=== PATIENT | female | born 1940 | race Hispanic/Latino ===

== ENCOUNTER 2018-02-12 10:25 | Outpatient (CLI) | payer MEDICARE ==
--- NOTE | 2018-02-12 13:41 | RAD ---
LUMBAR SPINE 2 VIEW: INDICATION: History of fall with back pain. COMPARISON: Lumbar spine radiograph dated 02/18/2006. FINDINGS: There is slight dextroscoliosis of the lumbar spine which is stable. There has been progression in t he degenerative disk disease of the lumbar spine most prominent at L4-5 and L5-S1. There is anterior translation of L4 on L5 which is stable. There are scattered vascular calcifications. No acute fra cture or subluxation is evident. IMPRESSION: 1. Progressive degenerative disk disease of the lumbar spine. 2. Stable grade I anterolisthesis of L4 on L5 when compared to a prior in 2005. POS: MORENA
== END 2018-02-12 10:26 | disposition home or self-care (01) ==
LOC: BICRAD 10:25
PROVIDERS: ATTEND Internal Medicine
DX: M54.9 Dorsalgia, unspecified (principal); M51.36 Other intervertebral disc degeneration, lumbar region; M43.16 Spondylolisthesis, lumbar region
CPT/HCPCS: 72100

== ENCOUNTER 2018-09-12 09:03 | Outpatient (CLI) | payer MEDICARE ==
--- NOTE | 2018-09-12 10:57 | MRI ---
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 FINDINGS: There is no obstructive hydrocephalus. There is no midline shift or any other evidence of mass effect . There is no extra-axial fluid collection. There are minimal chronic ischemic white matter changes due to microvascular atherosclerosis. There is otherwise no major intra-axial signal abnormality, abn ormal enhancement, mass, recent hemorrhage, or restricted diffusion. There is a T1 hypointense and T2 hyperintense implanted device at the superior lateral aspect of the right orbit. IMPRESSION: 1) the brain is essentially normal. 2) right intraorbital foreign body, presumably glaucoma drainage implant (GDI), but recommend correla tion with orbital surgical history
== END 2018-09-12 09:04 | disposition home or self-care (01) ==
LOC: SCSMRI 09:03
PROVIDERS: ATTEND Psychiatry & Neurology Neurology
DX: G40.209 Localization-related (focal) (partial) symptomatic epilepsy and epileptic syndromes with complex partial seizures, not intractable, without status epilepticus (principal); S00.251A Superficial foreign body of right eyelid and periocular area, initial encounter
CPT/HCPCS: 70553; 82565

== ENCOUNTER 2020-05-27 17:30 | Inpatient (IN) | payer MEDICARE ==
[2020-05-27 18:30] LABS: #Lymphocytes 0.9 thou/uL (1.20-3.40); #Monocytes 0.5 thou/uL (0.11-0.59); #Neutrophils 12.9 thou/uL (1.40-6.50); %Basophils 0.1 % (0.0-1.0); %Eosinophils 0.2 % (0.0-10.0); %Lymphocytes 6.1 % (21.0-51.0); %Monocytes 3.7 % (0.0-10.0); %Neutrophils 89.9 % (42.0-75.0); Hemoglobin 11.1 g/dL (12.0-16.0); Mean Corpuscular HGB CONC 31.9 g/dL (32.0-36.0); Mean Platelet Volume 6.9 fL (7.4-10.4); Platelet Count 298 thou/uL (130-400); RBC Distribution Width 16.1 % (11.5-14.5); White Blood Cell (WBC) Count 14.3 thou/uL (4.8-10.8)
--- NOTE | 2020-05-27 18:42 | RAD ---
EXAM: CHEST ONE VIEW HISTORY: Fall from standing position. Syncopal episode. Altered mental status and lethargy. COMPARISON: 12/01/2013 FINDINGS: Cardiac silhouette is magnified by projection but stable in size. Pulmonary vasculature is within nor mal limits. Linear area of scarring is again seen in the lingula. The lungs are otherwise clear. Again noted is evidence of prior granulomatous disease. No other interval change. IMPRESSION: No acute cardiopulmonary process.
[2020-05-27 18:47] LABS: ALT (SGPT) 10 U/L (8-55); AST (SGOT) 18 U/L (5-34); Alkaline Phosphatase 99 U/L (40-110); Anion Gap 15 mmol/L (10-20); BUN (Urea Nitrogen) 29 mg/dL (9.8-20.1); Bilirubin, Total 0.3 mg/dL (0.2-1.2); Calc. Creatinine Clearance 0 mL/min (70-130); Calcium 9.3 mg/dL (7.8-10.44); Carbon Dioxide 25 mmol/L (23-31); Chloride 102 mmol/L (98-107); Globulin 2.9 g/dL (2.4-3.5); Glucose 117 mg/dL (83-110); Potassium 4.8 mmol/L (3.5-5.1); Protein, Total 6.9 g/dL (5.8-8.1); Sodium 137 mmol/L (136-145)
--- NOTE | 2020-05-27 18:49 | RAD ---
RIGHT TIBIA AND FIBULA TWO VIEWS: 05/27/20 HISTORY: Fall. There is a comminuted more spiral type orientation of the fracture of the distal tibial shaft. There is a displaced component of the fracture more proximally but there does appear to be a fracture line that actually extends into the distal shaft. There is associated distal fibular shaft fracture. IMPRESSION: Distal tibia and fibular fractures. POS: NATALIE
[2020-05-27] MEDS ORDERED: Ondansetron PF 4 MG/2 ML Vial ONE (19:11)
[2020-05-27] MEDS ORDERED: Morphine 4 MG/ML VIAL ONE ×2 (19:11→19:57)
[2020-05-27] MEDS ORDERED: Cyclobenzaprine 10 MG TAB PO PRN (22:16)
[2020-05-27] MEDS ORDERED: Ondansetron PF 4 MG/2 ML Vial IVP PRN (22:16)
[2020-05-27] MEDS ORDERED: Dextrose 5% in Water 1,000 ML IV PRN (22:16)
[2020-05-27] MEDS ORDERED: traMADol HCl 50 MG TAB PO PRN (22:16)
[2020-05-27] MEDS ORDERED: Dextrose 50% Abboject 50 ML SYRINGE SLOW IVP PRN (22:16)
[2020-05-27] MEDS ORDERED: Ondansetron ODT 4 MG TAB PO PRN (22:16)
[2020-05-27] MEDS ORDERED: Morphine 2 MG/ML VIAL SLOW IVP PRN (22:16)
[2020-05-27] MEDS: Acetaminophen 500 MG TAB PO SCH (23:45)
[2020-05-27] MEDS ORDERED: Sodium Chloride 0.9% 1,000 ML IV SCH (23:55)
[2020-05-28 01:49] VITALS: BMI 32.6
--- NOTE | 2020-05-28 02:02 | HP ---
REQUESTING PHYSICIAN: Dr. Izquierdo. CONSULTATIONS: Orthopedics, Dr. Berkowitz. HISTORY OF PRESENT ILLNESS: The patient is a 79-year-old woman, who is brought to the emergency department after having a hypoglycemic event and fall. The patient reports that she did not monitor her blood sugar closely this morning when she used her insulin, and she reports that she felt very weak and fell. Fortunately, her daughter and sister were nearby and were able to give her some honey, and after she became more alert, she noted that her right lower extremity had some significant pain and discomfort. She was brought to the emergency room, where she underwent evaluation and examination and was noted to have right tibia and fibular fracture, at which time we were asked to evaluate the patient for admission and obtain orthopedic consultation. The patient denies hitting her head. She reports that she never fully lost consciousness. She just was very weak. ALLERGIES: PREDNISONE. CURRENT MEDICATIONS: 1. Simvastatin. 2. NovoLog and Novolin. 3. Baby aspirin. 4. Tylenol. 5. Iron supplement. 6. Lisinopril/hydrochlorothiazide. PAST MEDICAL HISTORY: Type 2 diabetes, hypertension, hyperlipidemia, blindness in one eye. SURGICAL HISTORY: The patient reports bilateral elbow fractures requiring surgery. SOCIAL HISTORY: The patient denies drug, tobacco, or alcohol use. She lives at home with family. REVIEW OF SYSTEMS: A 10-point review of systems is negative except otherwise stated. PHYSICAL EXAMINATION: VITAL SIGNS: Temperature is 97.9, heart rate 73, blood pressure 126/74, respirations 16, and oxygen saturation 100% on room air. GENERAL: The patient is resting comfortably in bed. She is awake, alert, conversant, appropriate. [place] Coma Scale is 15. HEENT: Head is normocephalic. Nose is atraumatic without discharge. Oropharynx is clear. NECK: Nontender. Trachea is midline. No JVD. CHEST: Clear to auscultation with good inspiratory and expiratory effort. HEART: Regular rate and rhythm. ABDOMEN: Soft, flat, nontender with active bowel sounds. EXTREMITIES: Neurovascularly intact x4. Right lower extremity is in a padded splint. LABORATORY FINDINGS: White blood cell count 14.3, hemoglobin 11.1, hematocrit 34.8, platelets 298. Sodium 137, potassium 4.8, chloride 102, CO2 of 25, BUN 29, creatinine 1.00, glucose 117. LFTs are unremarkable. Troponin is 0.023. COVID is pending. RADIOGRAPHIC FINDINGS: AP chest x-ray shows no acute cardiopulmonary process. Views of the right tibia and fibula show a distal tibia and fibular fractures. ASSESSMENT/PLAN: 1. Status post ground level fall due to hypoglycemia. 2. Right tibia and fibular fracture, closed. 3. History of diabetes, hypertension, hyperlipidemia. PLAN: Plan will be to admit the patient to the surgical floor. She will be n.p.o. after midnight. We will do sliding scale insulin coverage, hydration, pain control, pulmonary toilet, gastritis, mechanical VTE prophylaxis. The patient will be n.p.o. after midnight. Postoperatively, we will begin physical and occupational therapy and discuss placement at that time. The patient believes that she will be able to go home. The evaluation, examination, laboratory, and radiographic findings discussed with attending after this dictation. Job ID: [id number]
[2020-05-28 05:45] LABS: #Eosinphils 0.1 thou/uL (0.0-0.7); #Lymphocytes 2.5 thou/uL (1.20-3.40); #Monocytes 0.8 thou/uL (0.11-0.59); #Neutrophils 5.7 thou/uL (1.40-6.50); %Basophils 0.4 % (0.0-1.0); %Eosinophils 1.4 % (0.0-10.0); %Lymphocytes 27.3 % (21.0-51.0); %Monocytes 8.4 % (0.0-10.0); %Neutrophils 62.5 % (42.0-75.0); Hemoglobin 9.6 g/dL (12.0-16.0); Mean Corpuscular HGB CONC 32.4 g/dL (32.0-36.0); Mean Corpuscular Hemoglobin 30.6 pg (27.0-31.0); Mean Corpuscular Volume 94.3 fL (78.0-98.0); Mean Platelet Volume 7.1 fL (7.4-10.4); Platelet Count 273 thou/uL (130-400); RBC Distribution Width 16.3 % (11.5-14.5); Red Blood Cell (RBC) Count 3.14 mill/uL (4.20-5.40); White Blood Cell (WBC) Count 9.1 thou/uL (4.8-10.8)
[2020-05-28] MEDS ORDERED: Ibuprofen 600 MG TAB PO SCH (06:00)
[2020-05-28] MEDS: Acetaminophen 500 MG TAB PO SCH ×4 (06:22→23:22)
[2020-05-28 06:28] LABS: Phosphorus 5.1 mg/dL (2.3-4.7)
[2020-05-28 06:29] LABS: Anion Gap 12 mmol/L (10-20); BUN (Urea Nitrogen) 29 mg/dL (9.8-20.1); Calc. Creatinine Clearance 50 mL/min (70-130); Calcium 8.6 mg/dL (7.8-10.44); Carbon Dioxide 26 mmol/L (23-31); Chloride 104 mmol/L (98-107); Glucose 105 mg/dL (83-110); Potassium 4.7 mmol/L (3.5-5.1); Sodium 137 mmol/L (136-145)
[2020-05-28] MEDS ORDERED: CEFAZOLIN 2 GM in Premix Bag 1 BAG IVPB SCH (07:30)
--- NOTE | 2020-05-28 08:41 | CON ---
DATE OF CONSULTATION: This is Rogelio Arevalo PA-C dictating a report for Sj Berkowitz MD. We are asked by Trauma to see patient. HISTORY OF PRESENT ILLNESS: The patient states that she was at home. Her daughter had come to see her that morning. Around noon, she got up from the couch, did not feel so good, laid her head down. Her sister had called and was concerned she did not sound right and she ended up falling, fracturing her right tib-fib. She was trying to check her blood sugar at that time also, but was unable to due to weakness. She ended up eating a little bit and became more alert and noticed that her right lower extremity was quite painful and deformed and she called and came to the emergency room. The patient was put in a posterior splint. It looks like her leg was not straightened but asked if she feels okay and her leg is comfortable in the splint, therefore, I will not change it since she will have surgery around noon. She denies any other injuries. She has good sensations to that right lower extremity and wiggling her toes well. ALLERGIES: PREDNISONE. MEDICATIONS: 1. Simvastatin. 2. NovoLog. 3. Insulin. 4. Baby aspirin. 5. Tylenol. 6. Iron supplements. 7. Lisinopril/hydrochlorothiazide. PAST MEDICAL HISTORY: Diabetes, hypertension, hyperlipidemia. She has blindness in her right eye. SURGERIES: Bilateral elbows, some hand, right eye. SOCIAL HISTORY: Resides at home alone. Her family lives across the street and she has quite a bit of family in her normal vicinity. She denies any vices whatsoever. FAMILY FOR THIS EVENT: Noncontributory. REVIEW OF SYSTEMS: Very sweet, pleasant lady. Other than the blindness in her right eye denies any chest pain, shortness of breath. No bowel or bladder issues. Right lower extremity is comfortable right now, but misaligned, but her pulses and sensations are good to lower extremities. As discussed rest of review of systems is negative. PHYSICAL EXAMINATION: GENERAL: Very sweet, pleasant female, resting in bed in room 3302 in no acute distress. Her speech is clear. Affect pleasant. Answers questions appropriately. She is oriented. Her daughter in-law works in the hospital and just finished been visiting with her. HEENT: Scalp atraumatic. Face symmetric. Tongue midline. NECK: Supple. Trachea midline. CHEST: Respirations 16 in no acute distress. ABDOMEN: Soft, nontender pelvis. EXTREMITIES: Upper extremities equal size, shape, symmetry normal bulk and tone. Movements, sensations, pulses are equal. No pain with rocking lower extremities. Equal size, shape, symmetry. Normal bulk and tone with the exception of the right lower extremity, which is splinted. Her foot is outward rotated but again as above, is very comfortable. Therefore, I will not re-splint her since surgery is at noon. She has good movement of bilateral lower extremity digits. Sensations are good as are pulses. I am unable to palpate the dorsalis pedis due to the splinting but the posterior tibialis on the right is equal to the left. VITAL SIGNS: Currently are stable. LABORATORY DATA: H and H 9.6 and 29.7. UA not acquired. IMAGING DATA: X-rays show a right midshaft tibial fracture and a distal fibular fracture. ASSESSMENT: Tib-fib fracture. PLAN: Admitted to Trauma. They will manage her medical issues. As for Orthopedics, we plan to do a tibial nail with a possible medial malleolus repair. I explained the procedure to the patient, went over the risks and benefits, her questions and concerns have been answered and she is amenable to go forth with surgery. Our plan for surgery is at noon. Antibiotics have been ordered as also she has been posted. If family comes or they have any other questions or concerns we can address some as they arise. Job ID: [id number]
[2020-05-28] MEDS: Senokot S 8.6-50 MG TAB PO SCH ×2 (10:01→20:23)
[2020-05-28] MEDS: Polyethylene Glycol 3350 17 GM Packet PO SCH (10:01)
[2020-05-28] MEDS: Famotidine 20 MG TAB PO SCH ×2 (10:01→20:23)
[2020-05-28] MEDS ORDERED: PROPOFOL 200 MG/20 ML VIAL ONE (10:08)
[2020-05-28] MEDS ORDERED: PHENYLEPHRINE-NS 100 MCG/ML 10 ML SYRINGE ONE (10:08)
[2020-05-28] MEDS ORDERED: Lidocaine 1% PF 5 ML VIAL ONE (10:08)
[2020-05-28 11:42] LABS: SARS-CoV-2 PCR by NAA Not Detected (NotDetected)
[2020-05-28] MEDS ORDERED: Fentanyl 100 MCG/2 ML VIAL ONE (14:36)
[2020-05-28] MEDS ORDERED: Promethazine HCl 25 MG/ML VIAL IM PRN (15:03)
[2020-05-28] MEDS ORDERED: Promethazine HCl 25 MG/ML VIAL SLOW IVP PRN (15:03)
[2020-05-28] MEDS ORDERED: Ondansetron HCl/PF 4 MG/2 ML Vial IVP PRN (15:03)
--- NOTE | 2020-05-28 15:06 | PRG ---
DATE OF SERVICE: 05/28/2020 SUBJECTIVE: This is a 79-year-old female, who presented to the ER after having a hypoglycemic event and fall. The patient was found to have a fractured tibia and fibula. Ortho was consulted and is recommending operative management. This morning, the patient overall is feeling well, although does report some right-sided leg pain that is well controlled with current pain management. Overall, the patient has had an uneventful night with stable blood sugars. OBJECTIVE: VITAL SIGNS: Temperature 98.4, pulse 81, respiratory rate 12, O2 saturation 94% on room air, blood pressure 164/70. GENERAL: A 79-year-old female, lying comfortably in bed, who appears stated age. HEENT: Atraumatic and normocephalic. RESPIRATORY: Equal chest rise and fall. No acute respiratory distress. MUSCULOSKELETAL: No obvious deformities, moving upper extremities appropriately, right lower extremity limited by pain. NEUROLOGICAL: A and O x3. No focal deficits. PSYCHIATRIC: Mood and affect are appropriate and congruent. LABORATORY DATA: CBC is significant for hemoglobin 9.6, hematocrit 29.7. BMP is significant for creatinine of 1.13, glucose 105, phosphorus 5.1. DIAGNOSTIC IMAGING: No new images to report. ASSESSMENT: 1. Status post ground level fall due to hypoglycemia. 2. Right tibia and fibular fracture, closed. 3. History of diabetes, hypertension, and hyperlipidemia. PLAN: Orthopedic Surgery has been consulted and is planning on taking the patient to the OR for operative management of fracture. We will follow up with their recommendations as well as the patient postop this afternoon. Continue to monitor blood sugars and adjust insulin as needed. This patient was seen by Dr. Aponte and plan was discussed with him. He is in agreement. Job ID: [id number]
--- NOTE | 2020-05-28 17:50 | RAD ---
RIGHT TIBIA/FIBULA TWO VIEWS: History: Intraoperative films. FINDINGS: These show placement of an intramedullary gil stabilizing a distal tibial fracture in place. A plate and screws stabilize a distal fibular fracture. IMPRESSION: Open reduction internal fixation of distal tibia and fibular fractures. POS: NATALIE
[2020-05-28] MEDS: Insulin Regular 300 UNITS/3 ML VIAL SC PRN ×2 (17:58→22:08)
--- NOTE | 2020-05-28 18:49 | OP ---
DATE OF PROCEDURE: 05/28/2020 PREOPERATIVE DIAGNOSES: 1. Right comminuted tibial shaft fracture. 2. Right lateral malleolus fracture. POSTOPERATIVE DIAGNOSES: 1. Right comminuted tibial shaft fracture. 2. Right lateral malleolus fracture. PROCEDURES PERFORMED: 1. Intramedullary nail stabilization of right tibial shaft fracture. 2. Open reduction and internal fixation of right lateral malleolus. ANESTHESIA: General. FILLER SHAKER: Rogelio Arevalo PA-C TOURNIQUET TIME: Zero. ESTIMATED BLOOD LOSS: 100 mL. IMPLANTS: Synthes Ex-nail used measuring 10 x 285 mm with a 1/3 tubular 7-hole plate for the lateral malleolus. COMPLICATIONS: None. DRAINS: None. SPECIMEN: None. OUTCOME: Satisfactory. INDICATIONS FOR PROCEDURE: The patient is a 79-year-old lady, status post ground level fall sustaining a comminuted right tibial shaft fracture with a displaced right lateral malleolus fracture. After discussion with the patient including risks and benefits, we decided to proceed with open reduction and internal fixation utilizing an intramedullary nail for the tibia as well as possible open reduction and internal fixation of right lateral malleolus. There was not felt to be acceptable alignment after nailing of the tibia. Informed consent has been obtained. I believe all questions answered. DESCRIPTION OF PROCEDURE: The patient was brought to the operating room and a time-out performed followed by induction of general anesthesia. The patient was positioned supine on the fracture table with the injured extremity held over a bolster, allowing the knee to flex approximately 70 degrees and then the foot held in the traction device allowing gentle traction applied to the tibia. The well leg was held in extension. Next, a sterile prep and drape were performed of the right lower extremity. Next, a midline anterior knee incision was made after skin was sharply incised. Dissection was carried down to the underlying paratenon. Paratenon was incised in line with the skin and incision reflected medially and laterally. Following the medial border of the patellar tendon, blunt dissection was used to expose the proximal tibia. Next, a threaded guidewire was passed starting at this point into the intramedullary canal of the tibia. This was checked under C-arm guidance. Next, a reamer was passed over this threaded guidewire, gaining access to the intramedullary canal. A ball-tipped guidewire was then passed down the proximal shaft of the tibia. While I held reduction of the fracture, my diploma dental assistant provided further passage of the ball-tipped guidewire across the fracture in to the distal tibial metaphysis. My diploma dental assistant and I switched places and my diploma dental assistant maintained reduction of the tibial shaft fracture while I started reaming at 8.5 mm, continuing up to 11 mm. This was followed by measurement of an appropriate length nail and then insertion of a 10 x 285 mm nail. Again while my diploma dental assistant provided reduction of the fracture, the nail was passed across the fracture into the distal tibial metaphysis. Lateral imaging of the distal nail was performed and then freehand technique used to place two distal cross-lock screws without difficulty. The fracture was then gently compressed and then a single proximal cross-lock screw was placed through the jig. At this point, the fibula was found to be well aligned on the lateral projection; however, on the AP projection, it demonstrated a valgus deformity without end-on-end apposition at the fracture, as such I opted to proceed with open reduction and internal fixation of this fracture. An incision was made overlying the distal fibular fracture after the skin was sharply incised. Dissection was carried down bluntly exposing the fracture fragments. There was comminution at the fracture site. The fracture was reduced and held in place with bone tenaculums and then an 8-hole 1/3 tubular plate was applied to the lateral cortex of the distal fibula. This was held in place with combination of cancellous and cortical screws stabilizing the distal fibula. The completion of this final AP and lateral C-arm images were obtained of both tibia and fibula. The wounds were then irrigated with bulb syringe. The anterior midline knee incision was closed in layers with 0 Vicryl deep followed by 2-0 Vicryl and sumi. The small cross-lock incision sites were closed with sumi and then the distal lateral ankle incision was closed in layers with 0 Vicryl deep followed by 2-0 Vicryl and then sumi. Xeroform gauze, Webril, and fiberglass splint were then applied to the leg and the patient was transferred to recovery room in stable condition. There were no complications. She tolerated the procedure well. Job ID: [id number]
[2020-05-28] MEDS: Atorvastatin Calcium 20 MG TAB PO SCH (20:22)
[2020-05-28] MEDS: CEFAZOLIN 2 GM in Premix Bag 1 BAG IVPB SCH (20:23)
[2020-05-29] MEDS: CEFAZOLIN 2 GM in Premix Bag 1 BAG IVPB SCH (04:57)
[2020-05-29] MEDS: Acetaminophen 500 MG TAB PO SCH ×4 (04:58→23:43)
[2020-05-29] MEDS: Insulin Regular 300 UNITS/3 ML VIAL SC PRN ×4 (06:12→22:25)
[2020-05-29] MEDS: Lisinopril 20 MG TAB PO SCH (08:16)
[2020-05-29] MEDS: Senokot S 8.6-50 MG TAB PO SCH ×2 (08:16→20:43)
[2020-05-29] MEDS: Polyethylene Glycol 3350 17 GM Packet PO SCH (08:17)
[2020-05-29] MEDS ORDERED: Aspirin 81 mg Enteric Coated Tablet PO SCH (09:00)
[2020-05-29 09:18] LABS: #Eosinphils 0.1 thou/uL (0.0-0.7); #Lymphocytes 1.6 thou/uL (1.20-3.40); #Monocytes 0.7 thou/uL (0.11-0.59); #Neutrophils 6.5 thou/uL (1.40-6.50); %Basophils 0.3 % (0.0-1.0); %Eosinophils 1.6 % (0.0-10.0); %Lymphocytes 17.4 % (21.0-51.0); %Monocytes 7.8 % (0.0-10.0); %Neutrophils 72.9 % (42.0-75.0); Mean Corpuscular HGB CONC 32.4 g/dL (32.0-36.0); Mean Corpuscular Hemoglobin 30.8 pg (27.0-31.0); Mean Corpuscular Volume 95.2 fL (78.0-98.0); Mean Platelet Volume 6.8 fL (7.4-10.4); Platelet Count 254 thou/uL (130-400); White Blood Cell (WBC) Count 8.9 thou/uL (4.8-10.8)
[2020-05-29] MEDS: traMADol HCl 50 MG TAB PO PRN ×2 (12:39→18:26)
--- NOTE | 2020-05-29 13:41 | PDOC.GSPN ---
Surgery Progress Note: Subj - Subjective Narrative: 79 y/o female POD 2 right IM nail right tibial and ORIF right lateral malleolus. The patient is recovering well on the floor, sitting upright in chair next to the bed. Pain controlled with Tylenol, tramadol and flexeril. Patient is tolerating diet. Patient is voiding spontaneously. Surgery Progress Note: Obj - Vital signs Vital signs: Vital Signs - Most Recent Temp Pulse Resp BP Pulse Ox 98.7 F 81 18 94/56 L 94 L 05/29/20 11:21 05/29/20 11:21 05/29/20 11:21 05/29/20 11:21 05/29/20 11:21 - Physical Exam General: no distress, no pain ENT: no congestion Cardiovascular: regular rate and rhythm Respiratory: normal respiratory effort (speaking full sentences) Abdomen: soft, non tender, nondistended Musculoskeletal: normal posture, other (Right leg brace in place, moving all digits. sensation intact) Psychiatric: oriented to time, oriented to person, oriented to place Surgery Progress Note: Results - Labs Result Diagrams: 05/29/20 09:09 05/28/20 05:36 Lab results: Laboratory Results - last 12 hr 05/29/20 05/29/20 05:48 09:09 WBC 8.9 RBC 2.60 L Hgb 8.0 L Hct 24.8 L MCV 95.2 MCH 30.8 MCHC 32.4 RDW 16.0 H Plt Count 254 MPV 6.8 L Neutrophils % 72.9 Lymphocytes % 17.4 L Monocytes % 7.8 Eosinophils % 1.6 Basophils % 0.3 Neutrophils # 6.5 Lymphocytes # 1.6 Monocytes # 0.7 H Eosinophils # 0.1 Basophils # 0.0 POC Glucose 161 H Surgery Progress Note: A/P - Problem (1) Right tibial fracture Current Visit: Yes Code(s): S82.201A - UNSP FRACTURE OF SHAFT OF RIGHT TIBIA, INIT FOR CLOS FX Status: Acute Qualifiers: Encounter type: initial encounter Fracture type: closed Assessment and Plan: POD 1, Non-weight bearing RLE. Follow up with in ortho clinic. PT/OT ASA 81mg BID Dispo pending PT. Rest of plan per ortho. (2) Fracture of right ankle, lateral malleolus Current Visit: Yes Code(s): S82.61XA - DISP FX OF LATERAL MALLEOLUS OF RIGHT FIBULA, INIT Status: Acute Qualifiers: Encounter type: initial encounter Fracture type: closed Assessment and Plan: POD 1, Non-weight bearing RLE. Follow up with in ortho clinic. PT/OT ASA 81mg BID Dispo pending PT. Rest of plan per ortho. (3) JOYA (acute kidney injury) Current Visit: Yes Code(s): N17.9 - ACUTE KIDNEY FAILURE, UNSPECIFIED Status: Acute Assessment and Plan: JOYA most likely due to surgery BUN/CR 29/1.13. -Increase PO fluid intake -Renal dose medications as needed hyperphosphatemia restrict dietary phosphate to 900 mg/day if >5.5 Dispo pending PT/OT
[2020-05-29] MEDS: Atorvastatin Calcium 20 MG TAB PO SCH (20:43)
[2020-05-29] MEDS: Aspirin 81 mg Enteric Coated Tablet PO SCH (20:43)
[2020-05-29] MEDS: Docusate 100 MG CAP PO SCH (20:43)
[2020-05-30] MEDS: Acetaminophen 500 MG TAB PO SCH ×4 (05:59→23:18)
[2020-05-30] MEDS: Insulin Regular 300 UNITS/3 ML VIAL SC PRN ×4 (06:02→22:00)
[2020-05-30] MEDS: Polyethylene Glycol 3350 17 GM Packet PO SCH (08:15)
[2020-05-30] MEDS: Senokot S 8.6-50 MG TAB PO SCH ×2 (08:16→21:08)
[2020-05-30] MEDS: Lisinopril 20 MG TAB PO SCH (08:16)
[2020-05-30] MEDS: Docusate 100 MG CAP PO SCH (08:16)
[2020-05-30] MEDS: Aspirin 81 mg Enteric Coated Tablet PO SCH ×2 (08:16→21:07)
--- NOTE | 2020-05-30 13:48 | PRG ---
DATE OF SERVICE: 05/30/2020 SUBJECTIVE: The patient remains on the surgical floor. She is postop day 3, status post ground level fall, in which she sustained a right tibia and fibular fracture. She has undergone intramedullary nail fixation of this. She has tolerated that well. She has been working with physical and occupational therapy. Her pain is controlled. She is tolerating a diet, and she is currently awaiting placement to [facility] in [place]. PHYSICAL EXAMINATION: VITAL SIGNS: Temperature is 98.6, heart rate 73, blood pressure 117/65, respirations 20, oxygen saturation is 96% on room air. GENERAL: The patient is resting comfortably in bed. She is awake, alert, conversant, appropriate. [place] Coma Scale is 15. HEENT: Unremarkable. RESPIRATIONS: Nonlabored with equal rise and fall of the chest. ABDOMEN: Flat, nondistended. EXTREMITIES: Neurovascularly intact x4. Right lower extremity has clean, dry, and intact dressing and splint in place. LABS AND IMAGING: There are no labs or radiographs reviewed this morning. ASSESSMENT: 1. Status post ground level fall. 2. Status post intramedullary nail fixation of right tibia fracture. 3. Acute kidney injury. 4. History of diabetes. PLAN: Will be to continue supportive care. Encourage physical and occupational therapy. We will recheck labs in the morning to evaluate her acute kidney injury; then await placement, which we suspect will be on Monday. Job ID: [id number]
[2020-05-30] MEDS: traMADol HCl 50 MG TAB PO PRN (16:22)
[2020-05-30] MEDS: Atorvastatin Calcium 20 MG TAB PO SCH (21:07)
--- NOTE | 2020-05-30 22:29 | EKG ---
Test Reason : Blood Pressure : / mmHG Vent. Rate : 079 BPM Atrial Rate : 079 BPM P-R Int : 122 ms QRS Dur : 086 ms QT Int : 398 ms P-R-T Axes : 032 025 070 degrees QTc Int : 456 ms Normal sinus rhythm Low voltage QRS Borderline ECG Confirmed by BHARATHI RAMIREZ DO ([id number]), editor house organ IZZY PERALTA ([id number]) on 05/30/2020 10:29:04 PM Referred By: Confirmed By:BHARATHI RAMIREZ DO
[2020-05-31] MEDS: Acetaminophen 500 MG TAB PO SCH ×2 (06:13→12:10)
[2020-05-31 06:14] LABS: #Eosinphils 0.3 thou/uL (0.0-0.7); #Lymphocytes 1.8 thou/uL (1.20-3.40); #Monocytes 0.5 thou/uL (0.11-0.59); #Neutrophils 5.4 thou/uL (1.40-6.50); %Basophils 0.4 % (0.0-1.0); %Eosinophils 3.4 % (0.0-10.0); %Lymphocytes 22.4 % (21.0-51.0); %Monocytes 6.7 % (0.0-10.0); %Neutrophils 67.2 % (42.0-75.0); Hemoglobin 7.9 g/dL (12.0-16.0); Mean Corpuscular HGB CONC 33.3 g/dL (32.0-36.0); Mean Corpuscular Hemoglobin 31.8 pg (27.0-31.0); Mean Corpuscular Volume 95.5 fL (78.0-98.0); Mean Platelet Volume 7.4 fL (7.4-10.4); Platelet Count 239 thou/uL (130-400); Red Blood Cell (RBC) Count 2.47 mill/uL (4.20-5.40)
[2020-05-31] MEDS: Insulin Regular 300 UNITS/3 ML VIAL SC PRN ×2 (06:16→12:14)
[2020-05-31 06:33] LABS: Anion Gap 13 mmol/L (10-20); BUN (Urea Nitrogen) 17 mg/dL (9.8-20.1); Calc. Creatinine Clearance 62 mL/min (70-130); Calcium 8.2 mg/dL (7.8-10.44); Carbon Dioxide 27 mmol/L (23-31); Chloride 101 mmol/L (98-107); Glucose 202 mg/dL (83-110); Magnesium 2.1 mg/dL (1.6-2.6); Phosphorus 3.2 mg/dL (2.3-4.7); Potassium 4.2 mmol/L (3.5-5.1); Sodium 137 mmol/L (136-145)
[2020-05-31] MEDS: Aspirin 81 mg Enteric Coated Tablet PO SCH (08:09)
[2020-05-31] MEDS: Lisinopril 20 MG TAB PO SCH (08:09)
[2020-05-31] MEDS: Polyethylene Glycol 3350 17 GM Packet PO SCH (08:13)
[2020-05-31] MEDS: Senokot S 8.6-50 MG TAB PO SCH (08:13)
[2020-05-31] MEDS ORDERED: Ascorbic Acid 500 mg Chewable Tablet PO SCH (09:00)
[2020-05-31] MEDS: traMADol HCl 50 MG TAB PO PRN (15:27)
[2020-05-31 16:02] VITALS: BP 160/70; TEMP 98.3
[2020-05-31] MEDS ORDERED: Ferrous Sulfate 325 MG TAB PO SCH (17:00)
== END 2020-05-31 16:20 | DRG 493 ==
LOC: ERS 17:30 → SURG A 20:35
PROVIDERS: ADMIT Surgery; ATTEND Surgery
PROC: 0QSJ04Z Reposition Right Fibula with Internal Fixation Device, Open Approach (ICD-10-PCS; principal; 2020-05-28)
PROC: 0QSG06Z Reposition Right Tibia with Intramedullary Internal Fixation Device, Open Approach (ICD-10-PCS; 2020-05-28)
DX: S82.251A Displaced comminuted fracture of shaft of right tibia, initial encounter for closed fracture (principal); N17.9 Acute kidney failure, unspecified; Z20.822 Contact with and (suspected) exposure to COVID-19; W18.30XA Fall on same level, unspecified, initial encounter; E11.649 Type 2 diabetes mellitus with hypoglycemia without coma; I10 Essential (primary) hypertension; E78.5 Hyperlipidemia, unspecified; H54.40 Blindness, one eye, unspecified eye; S82.61XA Displaced fracture of lateral malleolus of right fibula, initial encounter for closed fracture; E83.39 Other disorders of phosphorus metabolism; Z79.82 Long term (current) use of aspirin; Z79.4 Long term (current) use of insulin; Z79.899 Other long term (current) drug therapy; Z88.8 Allergy status to other drugs, medicaments and biological substances
CPT/HCPCS: 29515; 36415; 36416; 71045; 76000; 80048; 80053; 83735; 84100; 84484; 85025; 87635; 93005; 96374; 96375; 96376; C1713; J0690; J1815; J2270; J2405; J2704; J3010; U0003; U0005

== ENCOUNTER 2021-01-28 14:16 | Outpatient (CLI) | payer MEDICARE | END 2021-01-28 14:17 | disposition home or self-care (01) | LOC: BICULT 14:16 | PROVIDERS: ATTEND Nurse Practitioner Family | DX: R63.4 Abnormal weight loss (principal); E04.2 Nontoxic multinodular goiter | CPT/HCPCS: 76536 ==

== ENCOUNTER 2022-03-31 14:47 | Outpatient (CLI) | payer MEDICARE, OTHER | END 2022-03-31 14:48 | disposition home or self-care (01) | LOC: RAD 14:47 | PROVIDERS: ATTEND Nurse Practitioner Family | DX: M25.551 Pain in right hip (principal); M54.50 Low back pain, unspecified; M47.816 Spondylosis without myelopathy or radiculopathy, lumbar region | CPT/HCPCS: 72100; 72170 ==

== ENCOUNTER 2024-12-24 18:47 | Emergency (ER) | payer MEDICARE ==
[~2024-12-24 18:47] MED LIST: Iopamidol-370 76% 500 ML MDV (1 ML CHARGE) ONE
[2024-12-24 20:06] LABS: #Basophils 0.03 10x3/uL (0.0-0.2); #Eosinophils 0.10 10x3/uL (0.0-0.7); #Monocytes 0.88 10x3/uL (0.11-0.59); #Neutrophils 6.21 10x3/uL (1.40-6.50); %Basophils 0.3 % (0.0-1.0); %Eosinophils 1.0 % (0.0-10.0); %Lymphocytes 26.3 % (21.0-51.0); %Monocytes 9.0 % (0.0-10.0); %Neutrophils 63.2 % (42.0-75.0); Hematocrit 32.7 % (36.0-47.0); Hemoglobin 10.7 g/dL (12.0-16.0); Mean Corpuscular Hemoglobin 30.8 pg (27.0-31.0); Mean Corpuscular Volume 94.2 fL (78.0-98.0); Platelet Count 217 10x3/uL (130-400); Red Blood Cell (RBC) Count 3.47 mill/uL (4.20-5.40); White Blood Cell (WBC) Count 9.83 10x3/uL (4.8-10.8)
[2024-12-24 20:32] LABS: ALT (SGPT) 8 U/L (Less than 34); AST (SGOT) 14 U/L (11-34); Albumin 3.6 g/dL (3.1-4.5); Alkaline Phosphatase 94 U/L (40-110); Anion Gap 15 mmol/L (10-20); BUN (Urea Nitrogen) 31 mg/dL (9.8-20.1); Bilirubin, Total 0.3 mg/dL (0.3-1.2); Calc. Creatinine Clearance 0 mL/min (70-130); Calcium 9.0 mg/dL (7.8-10.44); Carbon Dioxide 23 mmol/L (23-31); Chloride 102 mmol/L (98-107); Globulin 3.4 g/dL (2.4-3.5); Glucose 332 mg/dL (83-110); Potassium 4.2 mmol/L (3.5-5.1); Sodium 136 mmol/L (136-145)
[2024-12-24 21:06] LABS: Glucose, Urine (Dipstick) 500 mg/dL (Negative); Leukocyte 250 Leu/uL (Negative); Protein, Urine (Dipstick) Negative (Neg-Trace); RBC/HPF 0-3 HPF (0-3); Specific Gravity, Urine 1.008 (1.002-1.036)
[2024-12-24 21:14] LABS: Bacteria/HPF 1+ HPF (None Seen)
[2024-12-24 21:16] LABS: Urine Culture Reflex Yes Yes
[2024-12-24] MEDS ORDERED: Acetaminophen 500 MG TAB ONE (21:33)
[2024-12-24] MEDS ORDERED: cefTRIAXone (ROCEPHIN) 1 GM VIAL ONE (21:33)
== END 2024-12-24 23:00 | disposition home or self-care (01) ==
LOC: ERS 18:47
DX: J32.9 Chronic sinusitis, unspecified (principal); N39.0 Urinary tract infection, site not specified; E11.65 Type 2 diabetes mellitus with hyperglycemia; R29.700 NIHSS score 0; I10 Essential (primary) hypertension; E78.5 Hyperlipidemia, unspecified; Z86.73 Personal history of transient ischemic attack (TIA), and cerebral infarction without residual deficits; Z79.899 Other long term (current) drug therapy; Z79.82 Long term (current) use of aspirin; Z79.4 Long term (current) use of insulin; Z79.84 Long term (current) use of oral hypoglycemic drugs
CPT/HCPCS: 70496; 70498; 80053; 81001; 84484; 85025; 87086; 93005; 96365; 99285; J0696; Q9967; 36415